=== PATIENT | male | born 1940 | race Caucasian/White ===

== ENCOUNTER 2016-08-26 18:50 | Emergency (ER) | payer OTHER, BC ==
[~2016-08-26] VITALS: Ht 180.3 cm; Wt 95.3 kg
[~2016-08-26 18:50] MED LIST: ALLEGRA ALLERG180 MG PO; ANDROGEL5 GM TD; ASPIR 8181 MG PO; CENTRUM ULTRA1 EAC1 PO; CULTURELLE CAP1 EAC1 PO; DIOVAN320 MG PO; DULCOLAX STOOL100 MG PO; HEARTBURN TREAT15 MG PO; HYDROCODONE-AP1 EAC6 PO; LIVALO2 MG PO; OMEGA-31000 M1 PO; PROTONIX40 M1 PO; SAW PALMETTO450 MG PO; SORINE 80 MG TA80 M1 PO; STOOL SOFT50 MG/5 ML PO; STOOL SOFTENER100 M1 PO; TRAMADOL 50 MG50 MG PO; VITAMIN D1000 UNIT PO; VITAMIN E PO; WELCHOL 625 MG625 M1 PO; XANAX 0.25 MG0.25 MG PO; XARELTO10 MG PO
[2016-08-26 19:33] LABS: HEMATOCRIT 43.5 % (42.0-52.0); HEMOGLOBIN 14.7 gm/dL (14.0-18.0); MCH 31.4 pg (26.0-34.0); MCHC 33.7 g/dL (28.0-37.0); MCV 93.4 fL (80.0-100.0); PLATELET COUNT 196 thou/uL (150-400); RBC 4.66 mil/uL (4.50-6.00); RDW 13.2 % (10.5-14.5); WBC 10.7 thou/uL (4.0-11.0)
[2016-08-26 19:35] LABS: MANUAL DIFF YES
[2016-08-26 19:44] LABS: CALCIUM 8.5 mg/dL (8.5-10.1); CREATININE 1.1 mg/dL (0.6-1.3); POTASSIUM 3.9 mmol/L (3.5-5.1)
[2016-08-26 19:48] LABS: ALBUMIN 3.9 g/dL (3.4-5.0); TOTAL BILIRUBIN 0.6 mg/dL (<0.1-1.0); TOTAL PROTEIN 7.5 g/dL (6.4-8.2)
[2016-08-26 20:37] LABS: ANISOCYTOSIS 1+; HYPOCHROMASIA SLIGHT; TOTAL CELL COUNT 100
[2016-08-26 21:26] LABS: URINE BILIRUBIN NEGATIVE (Negative); URINE BLOOD 3+ (Negative); URINE COLOR YELLOW; URINE GLUCOSE-RANDOM* NEGATIVE (Negative); URINE KETONES 1+ (Negative); URINE LEUKOCYTES-REFLEX NEGATIVE (Negative); URINE PROTEIN (DIPSTICK) TRACE (Negative); URINE UROBILINOGEN 0.2 E.U./dl (0.2-1.0)
[2016-08-26 21:31] LABS: SQUAMOUS None Seen /LPF (0-3)
[2016-08-26 21:32] LABS: CASTS None Seen /LPF (None Seen); CRYSTALS None Seen /LPF (None Seen); URINE RBC 3-10 Few /HPF (0-2); URINE WBC-REFLEX None Seen /HPF (0-5)
[2016-08-26] MEDS ORDERED: BENTYL 20 MG TA20 M1 PO (21:34)
== END 2016-08-26 22:13 | disposition home or self-care (01) ==
LOC: ER 18:50
PROVIDERS: Emergency Medicine
DX: R19.7 Diarrhea, unspecified (principal); E78.5 Hyperlipidemia, unspecified; I10 Essential (primary) hypertension; K21.9 Gastro-esophageal reflux disease without esophagitis; Z90.49 Acquired absence of other specified parts of digestive tract; Z95.1 Presence of aortocoronary bypass graft; I25.2 Old myocardial infarction; Z88.6 Allergy status to analgesic agent; Z88.1 Allergy status to other antibiotic agents; Z88.8 Allergy status to other drugs, medicaments and biological substances

== ENCOUNTER → 2019-08-18 | Outpatient (CLI) | payer BLACKLUNG, BC, OTHER ==
[~2019-08-18] MED LIST changes: +BENTYL 20 MG TA20 M1 PO
== END ==
LOC: SJCVCIMAG 09:18
DX: I65.23 Occlusion and stenosis of bilateral carotid arteries (principal)

== ENCOUNTER 2019-11-28 15:38 | Inpatient (IN) | payer OTHER, BC ==
[~2019-11-28] VITALS: Ht 182.9 cm; Wt 85.5 kg
[2019-11-28 17:00] VITALS: BP 154/80
[2019-11-28 18:06] LABS: HEMATOCRIT 40.3 % (42.0-52.0); MCH 33.1 pg (26.0-34.0); MCHC 34.8 g/dL (28.0-37.0); MCV 95.2 fL (80.0-100.0); RBC 4.23 mil/uL (4.50-6.00); RDW 13.4 % (10.5-14.5); WBC 9.4 thou/uL (4.0-11.0)
[2019-11-28 19:01] LABS: ALBUMIN 3.6 g/dL (3.4-5.0); ANION GAP 5 mmol/L (7-16); BUN 19 mg/dL (7-18); CALCIUM 8.4 mg/dL (8.5-10.1); CHLORIDE 93 mmol/L (98-107); CO2 27 mmol/L (21-32); CREATININE 1.1 mg/dL (0.7-1.3); GLUCOSE 161 mg/dL (74-106); POTASSIUM 3.9 mmol/L (3.5-5.1); SGOT 17 U/L (15-37); SGPT 21 U/L (30-65); SODIUM 125 mmol/L (136-145); TOTAL BILIRUBIN 0.5 mg/dL (0.2-1.0); TOTAL PROTEIN 6.8 g/dL (6.4-8.2); TROPONIN-I <0.06 ng/mL (<0.06)
--- NOTE | 2019-11-28 19:38 | NUR ---
PATIENT ARRIVED FROM ADMITTING AT 1645, ALERT AND ORIENTED X4. INITIAL ASSESSMENT COMPLETED AND POC INITIATED.
[2019-11-28 20:20] VITALS: BP 127/74
[2019-11-29] VITALS (16 sets, daily range): BP systolic 92–141; BP diastolic 64–86
--- NOTE | 2019-11-29 06:52 | NUR ---
PATIENTS CARE WAS ASSUMED AT SHIFT CHANGE. PATIENT WAS ASSESSED AND MEDS WERE PASSED. PATIENT IS GOING TO THE [employer] THIS MORNING. PATIENT HAS BEEN NPO SINCE MIDNIGHT. PATIENT WAS ON A HEART HEALTHY DIET. PATIENT IS A OR V PASCED. PATIENT REFUSED THE STATIN AT 2100 DUE TO IT IS NOT LIKE THE ONE HE HAS AT HOME. PATIENT WAS FEARFUL OF A BED REACTION. HOURLY ROUNDS WERE DONE. THE BED ARE IN A LOW AND LOCKED POSITION
--- NOTE | 2019-11-29 13:58 | NUR ---
SPIRITUAL CARE CONSULT COMPLETED BY THIS MAINTENANCE MECHANIC ENGINE.
--- NOTE | 2019-11-29 16:16 | NUR ---
met with patient who admits with syncope. Patient reside at home with spouse. They live in split level home with steps. Patient reports not difficulty with steps. He has cane and walker if needed. He reports he was told he cannot drive for 3 months but drives. he has a son in [place] and dtr in [place]. Plans to move to [facility] by end of year. reports likely no needs at dc. PCP Dr Nader Silveira casemgt following for dc planning.
--- NOTE | 2019-11-29 17:26 | NUR ---
ASSUMED CARE 0700. ALERTX4 WITH FORGETFULNESS. DENIES CHEST PAIN, DENIES SOB, CARDIAC CONFERENCE DIRECTOR PROCEDURE WITH NO STENTS PLACE. POST PROCEDURE INTERVENTIONS IN PLACE. VSS. LEGT GROIN SIGHT C/D/I FOLLOWED 3 HOURS LEFT LEG IMMOBILIZATION PROTOCO. UP WITH STAND BY ASSIST. CALLS FOR ASSISTANCE. PERSONAL ITEMS AND CALL LIGHT IN REACH. LIKELY DC TOMORROW.
[2019-11-30 03:49] VITALS: BP 120/77
--- NOTE | 2019-11-30 06:25 | NUR ---
PATIENTS CARE WERE ASSUMED AT SHIFT CHANGE. PATIENT WAS ASSESSED AND MEDS WERE PASSED. PATIENT NEEDS BP MEDS OTHER THAN SCHEDULED DUE TO BP ELEVATION LAST NIGHT. PATIENT A POSSIBLE D/C HOME TODAY. DOPPLER WAS DONE THIS SHIFT. HOURLY ROUNDS DONE. BED IS IN A LOW AND LOCKED POSITION.
[2019-11-30 07:30] VITALS: BP 124/86
[2019-11-30] MEDS ORDERED: SOTALOL 120 MG120 MG PO (07:41)
[2019-11-30] MEDS ORDERED: ASPIR 8181 MG PO (07:41)
[2019-11-30] MEDS ORDERED: FINASTERIDE5 MG PO (07:41)
--- NOTE | 2019-11-30 08:05 | NUR ---
ASSUMED CARE OF PT AT SHIFT CHANGE, A&0X4, NO PAIN YET MENTIONS FATIGUE. AMB STEADY, SEE SEPARATE INTERVENTIONS FOR ASSESSMENTS. ENCOURAGED PT TO USE CALL LIGHT FOR ANY NEEDS, HAD SNACK W/MEDS THIS A.M. APPEARS IN [facility], REPORTS OF POSSIBLE D/C, EDUCATION GIVEN ON D/C PROCESS AND TIME. MEDS FROM HOME NOT RESTARTED. WILL CONTINUE TO MONITOR
--- NOTE | 2019-11-30 11:09 | CATHLAB ---
[facility] [place] [address] INVASIVE PROCEDURE REPORT Name: ROMAIN VALLEJO Abhi Room #: 215-P ADM IN M.R.#: [id number] Admission: 11/28/19 Attend Phys: Bowen Calzada MD, Discharge: Date of : 40 Report #: [id number] THIS REPORT FOR: cc: Dez Silveira MD, Christopher B. MD Mancuso, Gerald M. MD [facility] ~ APPROVED REPORT Study performed: 11/29/2019 09:44:18 Patient Details Patient Status: In-Patient Room #: The patient is a 78 year-old male Event Personnel Bowen Calzada Seaman, Nando Muller RN RN, Nathaly Spears RN RN, Kathy Wright RTR, BILL Thompson, Maryjane Ruffin Monitor Procedures Performed Art Access - R femoral artery* Left Heart Cath w/or w/o Coronaries [id number] [facility] Aortogram Abdominal Peripheral Angio 233384 11177 Initial Mod Sed Same Phys/QHP Gr5y 879524 26096 Mod Sed Same Phys/QHP Ea 642337 Hemostasis w/ Mynx Indication Chest pain Procedure Narrative The Right Groin^ was infiltrated with 1% Lidocaine subcutaneous anesthesia. A PINNACLE 6FR Sheath #[id number] sheath was inserted into the RFA 6F^. Coronary angiography was performed using coronary diagnostic catheters. The right coronary system was accessed and visualized with a JR4 catheter. The left coronary system was accessed and visualized with a JL5 catheter. The left ventricle was accessed and visualized with a STR PIG catheter. Left ventriculogram was performed in 30 degree projection. The patient tolerated the procedure well and there were no complications associated with the procedure. There was no hematoma. Intraoperative Conscious Sedation Sedation start time: 1027 Case end Time: 1100 Fentanyl 50 mcg Versed 1 mg [facility] [place] [address] INVASIVE PROCEDURE REPORT Name: ROMAIN VALLEJO Room #: 215-P [facility] IN M.R.#: [id number] Admission: 11/28/19 Attend Phys: Bowen Calzada, Discharge: Date of : 40 Report #: [id number] Fluoro Time: 393.00 minutes Dose: DAP 3617.00 cGycm2 393 mGy Contrast Type and Amount: Omnipaque 155 ml Hemodynamics The aortic pressure is 116/63 mmHg with a mean of 78 mmHg. The left ventricular pressure is 118/2 mmHg with a mean of mmHg. The left ventricular end diastolic pressure is 13 mmHg. Conclusion 1. Normal left jugular size moderate reduction in LV function EF 3035% range #2 left main with some mild ostial disease of 30% giving rise to LAD and circumflex #3 LAD with moderate proximal disease 3040% irregularity large diagonal branch well preserved. LAD extends to the apex. No occlusive disease #4 circumflex OM small nondominant vessel #5 dominant right coronary mildly ectatic no significant occlusive disease. #6 abdominal aortogram intact with mild ectasia. No definite aneurysm. Recommendations and plan: Continue aggressive risk factor modification. Does not appear that ischemia is the etiology of his VT event. Continue aggressive risk factor modification. Transfer back to CCU stable condition. <ELECTRONICALLY SIGNED> By: Bowen Calzada MD, FACC 11/30/19 1108 1108 Bowen Calzada MD, FACC /INF
[2019-11-30 12:00] VITALS: BP 104/60
[2019-11-30 13:11] VITALS: BP 104/60
--- NOTE | 2019-11-30 16:43 | EKG ---
[facility] [place] [address] ELECTROCARDIOGRAM REPORT Name: ROMAIN VALLEJO Room #: 215-[facility] IN M.R.#: [id number] Admission: 11/28/19 Attend Phys: Bowen Calzada MD, Discharge: 11/30/19 Date of : 40 Report #: [id number] THIS REPORT FOR: cc: Dez Silveira MD, Christopher B. MD Lundgren,Antwan Carrion MD [facility] ~ THIS REPORT FOR: //name// [facility] Test Date: 2019-11-30 Test Time: 07:17:07 Pat Name: ROMAIN VALLEJO Department: Room: 215 Gender: M Vamp Throater: JAMES : 1940 Requested By: Cristian Pederson Order Number: [id number] MD: Antwan Moore Measurements Intervals [place] Rate: 63 P: -9 WV: 262 QRS: -12 QRSD: 94 T: -18 QT: 417 QTc: 427 Interpretive Statements Sinus rhythm Ventricular premature complex Prolonged WV interval Inferior infarct, age indeterminate Baseline wander in lead(s) V3 Compared to ECG 02/23/2015 07:19:22 First degree AV block now present Electronically Signed On 11-30-2019 16:42:27 CDT by Antwan Moore [email or web address] <ELECTRONICALLY SIGNED> By: Antwan Moore MD, [facility] 11/30/19 1642 6 6 Antwan Moore MD, [facility] /EPI
--- NOTE | 2019-12-05 15:59 | HC ---
[facility] [place] [address] CONSULTATION Name: ROMAIN VALLEJO Room #: 215-P [facility] IN M.R.#: [id number] Admission: 11/28/19 Attend Phys: Bowen Calzada MD, Discharge: 11/30/19 Date of : 40 Report #: [id number] THIS REPORT FOR: cc: Dez Silveira MD,Cristian Washington MD, MD ~ CC: Dez Calzada DATE OF SERVICE: 11/28/2019 ELECTROPHYSIOLOGY CONSULTATION REASON FOR CONSULTATION: VT and syncope. HISTORY OF PRESENT ILLNESS: The patient is a 78-year-old male with history of ischemic cardiomyopathy, history of ventricular tachycardia, status post Medtronic single chamber ICD implantation back in February 2015. The patient has been on sotalol 80 b.i.d. for several years and has not had clinical recurrence of VT until yesterday. He was at home and had a syncopal episode. This correlated with episode of VT monomorphic 200 beats per minute that was successfully ATP'd with buddhist of sinus rhythm. He was admitted to the hospital. His sotalol dose was increased and underwent diagnostic cardiac catheterization, which showed stable coronary artery disease with no need for intervention. REVIEW OF SYSTEMS: A 12-point review of systems was performed and was negative other than what I mentioned above. PAST MEDICAL HISTORY: 1. Ischemic cardiomyopathy. 2. Coronary artery disease, status post inferior wall [place] with RCA stent in 2003. 3. 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 4. Hypertension. 5. Hyperlipidemia. 6. Peripheral vascular disease. SOCIAL HISTORY: Does not smoke. FAMILY HISTORY: Noncontributory. ALLERGIES: Multiple and reviewed. MEDICATIONS: Have been reviewed and include the sotalol 80 b.i.d. [facility] [address] [place] [address] CONSULTATION Name: ROMAIN VALLEJO Room #: 215-P [facility] IN [facility].#: [id number] Admission: 11/28/19 Attend Phys: Bowen Calzada MD, Discharge: 11/30/19 Date of : 40 Report #: [id number] PHYSICAL EXAMINATION: VITAL SIGNS: Stable. GENERAL: No acute distress. HEENT: Oropharynx clear. NECK: Supple, with no thyromegaly. HEART: Regular rate and rhythm. LUNGS: Clear to auscultation bilaterally. ABDOMEN: Soft, nontender, nondistended. BACK: No CVA tenderness. EXTREMITIES: No clubbing, cyanosis, or edema. NEUROLOGIC: Cranial nerves 2-12 intact. LABORATORY DATA: Reviewed. Chest x-ray reviewed, cath performed today reviewed. ASSESSMENT: 1. Recurrent monomorphic ventricular tachycardia. 2. Ischemic cardiomyopathy. 3. Coronary artery disease. PLAN: The patient underwent cardiac catheterization and there is no ischemia, requiring intervention. I agree with increasing sotalol to 120 b.i.d. and watching him until tomorrow. If he has no clinical recurrence and QTC is within normal limits, could potentially discharge tomorrow. He will need close followup in the EP clinic. We discussed that if he has clinical recurrence, we may consider VT ablation versus amiodarone therapy. <ELECTRONICALLY SIGNED> By: Cristian Pederson MD 12/05/19 1559 1250 1328 Cristian Pederson MD /nt
== END 2019-11-30 13:43 | disposition home or self-care (01) | DRG 286 ==
LOC: SJCVCIMAG 15:38 → 2N 16:23
PROVIDERS: Nurse Practitioner Adult Health; ADMIT Internal Medicine Cardiovascular Disease; ATTEND Internal Medicine Cardiovascular Disease
PROC: B2111ZZ Fluoroscopy of Multiple Coronary Arteries using Low Osmolar Contrast (ICD-10-PCS; principal; 2019-11-29)
PROC: B4101ZZ Fluoroscopy of Abdominal Aorta using Low Osmolar Contrast (ICD-10-PCS; principal; 2019-11-29)
PROC: B2151ZZ Fluoroscopy of Left Heart using Low Osmolar Contrast (ICD-10-PCS; principal; 2019-11-29)
PROC: 4A023N7 Measurement of Cardiac Sampling and Pressure, Left Heart, Percutaneous Approach (ICD-10-PCS; principal; 2019-11-29)
DX: I47.2 Ventricular tachycardia (principal); G93.41 Metabolic encephalopathy; I25.10 Atherosclerotic heart disease of native coronary artery without angina pectoris; I25.5 Ischemic cardiomyopathy; I10 Essential (primary) hypertension; E78.5 Hyperlipidemia, unspecified; I65.29 Occlusion and stenosis of unspecified carotid artery; I73.9 Peripheral vascular disease, unspecified; Z79.899 Other long term (current) drug therapy; Z95.5 Presence of coronary angioplasty implant and graft; Z95.810 Presence of automatic (implantable) cardiac defibrillator
CPT/HCPCS: 10081

== ENCOUNTER → 2020-01-11 | Outpatient (CLI) | payer BC, OTHER ==
[~2020-01-11] MED LIST changes: +FINASTERIDE5 MG PO; +SOTALOL 120 MG120 MG PO
== END ==
LOC: LAB 10:10
PROVIDERS: ATTEND Internal Medicine Cardiovascular Disease
DX: Z01.812 Encounter for preprocedural laboratory examination (principal); Z11.59 Encounter for screening for other viral diseases

== ENCOUNTER 2020-01-15 06:24 | Observation (INO) | payer BC, OTHER ==
[2020-01-15] VITALS (10 sets, daily range): BP systolic 97–147; BP diastolic 57–81
[~2020-01-15] VITALS: Ht 182.9 cm; Wt 86.6 kg
[2020-01-15 07:42] LABS: ABSOLUTE NEUTROPHILS 7.2 thou/uL (1.4-8.2); BASOPHILS 0.4 % (0.0-2.0); EOSINOPHILS 5.3 % (0.0-3.0); HEMATOCRIT 43.2 % (42.0-52.0); HEMOGLOBIN 15.1 gm/dL (14.0-18.0); LYMPHOCYTES 11.7 % (24.0-44.0); MCH 33.2 pg (26.0-34.0); MCHC 34.9 g/dL (28.0-37.0); MCV 95.2 fL (80.0-100.0); MONOCYTES 11.4 % (1.0-8.0); PLATELET COUNT 220 thou/uL (150-400); POLYS 71.2 % (36.0-66.0); RBC 4.53 mil/uL (4.50-6.00); RDW 13.4 % (10.5-14.5); WBC 10.1 thou/uL (4.0-11.0)
[2020-01-15 07:51] LABS: CALCIUM 8.9 mg/dL (8.5-10.1); POTASSIUM 4.2 mmol/L (3.5-5.1)
[2020-01-15] MEDS ORDERED: ASA81BEC PO (07:56)
[2020-01-15 07:57] LABS: ALBUMIN 4.3 g/dL (3.4-5.0); TOTAL BILIRUBIN 0.8 mg/dL (0.2-1.0); TOTAL PROTEIN 7.9 g/dL (6.4-8.2)
[2020-01-15] MEDS ORDERED: VITAMIN D31250 MCG PO (07:58)
[2020-01-15] MEDS ORDERED: WELCHOL 625 MG625 M1 PO (07:58)
[2020-01-15 07:59] LABS: APTT 28.3 Seconds (24.5-32.8); PROTIME 10.1 Seconds (9.3-11.4)
[2020-01-15] MEDS ORDERED: SOTALOL80 MG PO (08:03)
[2020-01-15] MEDS ORDERED: ANDROGEL5 GM TOP (08:06)
[2020-01-15] MEDS ORDERED: MIRALAX119 GM PO (08:07)
[2020-01-15] MEDS ORDERED: FISH OIL 1,0001 EAC9 PO (08:07)
[2020-01-15] MEDS ORDERED: UNICOMPLEX M TA1 TA1 PO (08:08)
--- NOTE | 2020-01-15 17:48 | NUR ---
PATIENT ARRIVED FROM CATHLAB S/P ABILATION, VSS AND [facility] SITE D/C/I, AND PATEINT DENIES ANY DISOCMFORT.JUNIOR DISCONTINUED AND WILL CONTINUE WITH POC.
[2020-01-16 00:24] VITALS: BP 123/68
[2020-01-16 03:57] VITALS: BP 122/81
[2020-01-16 06:04] LABS: CALCIUM 8.3 mg/dL (8.5-10.1); CREATININE 0.9 mg/dL (0.7-1.3); POTASSIUM 3.9 mmol/L (3.5-5.1)
--- NOTE | 2020-01-16 06:09 | NUR ---
ASSUMED CARE 1900. PT S/P CARDIAC ABLATION. ALERT AND ORIENTED X 4. VITALS STABLE. SR ON THE MONITOR WITH 1 AVB. FREQUENT PVCs NOTICED, OTHERWISE STABLE. DENIES CHEST PALPITATIONS. PT HAD A TOTAL OUTPUT OF 200 CC OVERNIGHT. C/O URGE TO URINATE BUT SEEM NOT TO BEE URINATING ENOUGH. BLADDER SCAN THIS AM SHOWS RESIDUAL OF MORE THAN 603 CC. STRAIGHT CATH OUTPUT OF 720 CC. NO OTHER CONCERNS. ALL THE ASSESSMENTS DOCUMENTED. WILL CONTINUE TO MONITOR AND FOLLOW POC
[2020-01-16 08:15] VITALS: BP 152/83
--- NOTE | 2020-01-16 10:14 | NUR ---
S.C. CONSULT [id number] WAS COMPLETED BY THIS [employer] SPOT[employer]. PT. WAS VIISTED PRE-PROCEDURE AND POST-PROCEDURE. WAS PRESENT. FABBY HALEY A TIME OF PRAYER AND BOTH WERE APPRECIATIVE FOR SUPPORT.
[2020-01-16 12:16] VITALS: BP 152/83
--- NOTE | 2020-01-16 12:32 | NUR ---
ASSUMED CARE AT SHIFT CHANGE, ALERT AND ORIENTED X4. SR WITH PVC'S ON THE MONITOR. MILD BRUISES TO RT GRION SIDE, AND DENIES ANY DISCOMFORT. VSS. DISCHARGE AND MEIDCATIOIN INSTRUCTIONS GIVEN TO PATIENT AND HIS . PATEINT DISCHARGED HOME.
--- NOTE | 2020-01-19 11:51 | P ---
[facility] [place] [address] PROCEDURE REPORT Name: ROMAIN VALLEJO Room #: 214-P [facility] Shadia M.Felicita.#: [id number] Admission: 01/15/20 Attend Phys: Cristian Pederson MD Discharge: 01/16/20 Date of : 40 Report #: [id number] THIS REPORT FOR: cc: Dez Silveira MD,Cristian Washington MD, MD ~ CC: Dez Pederson DATE OF SERVICE: 01/16/2020 VT ABLATION PREOPERATIVE DIAGNOSES: 1. Ischemic cardiomyopathy. 2. Sustained monomorphic ventricular tachycardia. POSTOPERATIVE DIAGNOSES: 1. Ischemic cardiomyopathy. 2. Sustained monomorphic ventricular tachycardia. PROCEDURES PERFORMED: 1. VT ablation, CPT code 70787. 2. Left atrial pacing and recording, CPT code 00266. 3. Intracardiac echo, CPT code 12617. 4. Arterial line placement, [address]. 5. Preprocedure ICD reprogramming, CPT code 95558. 6. Post-procedure ICD reprogramming, CPT code 10654. HISTORY: The patient is a 79-year-old male with history of coronary artery disease, status post prior inferior AR with resultant ischemic cardiomyopathy, also with history of sustained ventricular tachycardia, status post ICD implantation for secondary prevention. He did well for several years on sotalol therapy until recently had a sustained episode of ventricular tachycardia with resultant syncope. He is here for a VT ablation. ANESTHESIA: The patient underwent general anesthesia with no anesthesia related complications. DESCRIPTION OF PROCEDURE: The patient underwent informed consent. We discussed the details of the procedure including the risks, which include but not limited to bleeding, vascular damage, stroke, AR as well as cardiac perforation. He understood these risks and is willing to proceed. The patient was brought to EP laboratory in a fasting and sedated state and prepped and draped in a sterile fashion. His ICD therapies were disabled prior [facility] [place] [address] PROCEDURE REPORT Name: ROMAIN VALLEJO Room #: 214-P [facility]..#: [id number] Admission: 01/15/20 Attend Phys: Cristian Pederson MD Discharge: 01/16/20 Date of : 40 Report #: [id number] to the procedure. Next, I obtained access to the right femoral vein x 3, placing a 6, 9, and 7-Uzbek short sheath and via these sheaths I placed a quadripolar catheter into the right ventricle, ICE catheter into the right atrium and a Decapolar catheter in the coronary sinus for left atrial pacing and recording. Arterial access was obtained as well and an 8-Uzbek short sheath was sutured to the skin. At baseline, the patient was in sinus rhythm with sinus cycle length of 845 milliseconds, NC interval 190 milliseconds, QRS duration 95 milliseconds, QT interval 895 milliseconds, AH interval 120 milliseconds, HV interval 55 milliseconds. Next, the patient was systemically heparinized and I took a PentaRay catheter into the left ventricle and performed voltage map. This showed that there was a large inferior scar region and at the septal area, there was highly fractionated atrial electrograms and there appeared to be small channels within here as well. This scar extended apically and laterally as well. The patient did have some ventricular tachycardia that was right bundle-branch block, transitioned in V5 and negative in II, III and aVF. When I would pace map from this area fractionated signals, we had a long ____ ventricular electrogram and the pace map was around 12/12 in this region. Therefore, using a Auxmoney ThermoCool ablation catheter, we performed substrate ____ along the scar border throughout the left ventricle, but primarily focused in this region where my pace maps were good. Extensive ablation was performed around this border zone and there were no further fractionated signals along this region. I did use intracardiac ultrasound to assist with mapping of the papillary muscles as well as the left ventricle. After extensive ablation, the procedure was concluded. The patient remained in sinus rhythm. Using intracardiac echocardiography, I verified there was no pericardial effusion. The ICD was reprogrammed to its therapies. I did increase the VF zone from 220-240 beats per minute and I lowered his VT zone from 180-160 beats per minute. As such, the procedure was concluded. Catheters and sheaths were pulled and hemostasis obtained. The patient awoke neurologically and hemodynamically intact. No complications and no significant bleeding. CONCLUSIONS: 1. Successful VT ablation. 2. Successful ICD reprogramming. <ELECTRONICALLY SIGNED> By: Cristian Pederson MD 01/19/20 1151 1144 1326 Cristian Pederson MD /nt
== END 2020-01-16 13:07 | disposition home or self-care (01) ==
LOC: CATH 06:24 → 2N 13:27 → CATH 15:00 → 2N 15:00
PROVIDERS: ADMIT Internal Medicine Cardiovascular Disease; ATTEND Internal Medicine Cardiovascular Disease
DX: I25.5 Ischemic cardiomyopathy (principal); I47.1 Supraventricular tachycardia; I25.10 Atherosclerotic heart disease of native coronary artery without angina pectoris; R55 Syncope and collapse; E78.5 Hyperlipidemia, unspecified; I11.0 Hypertensive heart disease with heart failure; I50.22 Chronic systolic (congestive) heart failure; I73.9 Peripheral vascular disease, unspecified; Z79.82 Long term (current) use of aspirin; Z79.899 Other long term (current) drug therapy
CPT/HCPCS: 10081; 62110; 62900; 70005

== ENCOUNTER → 2020-01-23 | Outpatient (CLI) | payer BC, OTHER ==
[~2020-01-23] MED LIST changes: +ANDROGEL5 GM TOP; +ASA81BEC PO; +FISH OIL 1,0001 EAC9 PO; +MIRALAX119 GM PO; +SOTALOL80 MG PO; +UNICOMPLEX M TA1 TA1 PO; +VITAMIN D31250 MCG PO
== END ==
LOC: SJCVCIMAG 12:11
PROVIDERS: ATTEND Internal Medicine Cardiovascular Disease
DX: M79.81 Nontraumatic hematoma of soft tissue (principal); R10.30 Lower abdominal pain, unspecified

== ENCOUNTER → 2020-04-17 | Outpatient (CLI) | payer BC, OTHER | LOC: SJCVC 14:46 | PROVIDERS: ATTEND Internal Medicine Cardiovascular Disease | DX: I47.2 Ventricular tachycardia (principal); I25.5 Ischemic cardiomyopathy; Z95.810 Presence of automatic (implantable) cardiac defibrillator ==